=== PATIENT | male | born 1970 | race Two or more races ===

== ENCOUNTER 2016-12-17 16:49 | Inpatient (IN) | payer SELFPAY ==
[~2016-12-17] VITALS: Ht 167.6 cm; Wt 44.7 kg
[2016-12-17] MEDS ORDERED: IV NORMAL SALINE 1000ML BAG 1,000 ML IV ONE (18:00)
[2016-12-17] MEDS ORDERED: MORPHINE SULFATE 4 MG/ML DISP.SYRIN. IV PRN (18:15)
[2016-12-17] MEDS ORDERED: ONDANSETRON PF 4 MG/2 ML VIAL. IV PRN (18:15)
--- NOTE | 2016-12-17 18:18 | PHYS DOC ---
Past Medical History Past Medical History: No Pertinent History, Diabetes-Type I, Hypertension Additional Past Medical Histor: noncompliant with treatment Past Surgical History: No Surgical History Alcohol Use: None Drug Use: None Adult General Chief Complaint Chief Complaint: MULTIPLE COMPLAINTS [facility] HPI Patient is a 46 year old male who presents with [id number] who has multiple complaints including several day history of pain erythema swelling to the left medial thigh denies fevers denies trauma. In addition has had exertional dyspnea and some tightness in his chest over the past 6 months this progressively getting worse. Denies any history of heart murmurs. Denies taking medicine for his known history of diabetes. Review of Systems Review of Systems Constitutional: Denies fever or chills [] Eyes: Denies change in visual acuity, redness, or eye pain [] HENT: Denies nasal congestion or sore throat [] Respiratory: Denies cough or shortness of breath [] Cardiovascular: No additional information not addressed in HPI [] GI: Denies abdominal pain, nausea, vomiting, bloody stools or diarrhea [] : Denies dysuria or hematuria [] Musculoskeletal: Denies back pain or joint pain [] Integument: Denies rash or skin lesions [] Neurologic: Denies headache, focal weakness or sensory changes [] Endocrine: Denies polyuria or polydipsia [] Current Medications Current Medications Current Medications Medications (Trade) Dose Ordered Sig/Davidson Start Time Stop Time Status Last Admin Dose Admin Clindamycin Phosphate 50 ml @ 100 mls/hr 1X ONCE 12/17/16 18:45 12/17/16 19:14 DC 12/17/16 18:48 100 MLS/HR Morphine Sulfate 4 mg PRN Q2HR PRN 12/17/16 18:15 12/18/16 18:14 12/17/16 18:30 4 MG Ondansetron HCl (Zofran) 4 mg PRN Q8HRS PRN 12/17/16 18:15 12/18/16 18:14 12/17/16 18:29 4 MG Sodium Chloride 1,000 ml @ 1,000 mls/hr 1X ONCE 12/17/16 18:00 12/17/16 18:59 DC 12/17/16 18:28 1,000 MLS/HR Allergies Allergies Allergies Coded Allergies Type Severity Reaction Last Updated Verified No Known Drug Allergies 12/17/16 No Physical Exam Physical Exam Constitutional: Well developed, well nourished, no acute distress, non-toxic appearance. [] HENT: Normocephalic, atraumatic, bilateral external ears normal, oropharynx moist, no oral exudates, nose normal. [] Eyes: PERRLA, EOMI, conjunctiva normal, no discharge. [] Neck: Normal range of motion, no tenderness, supple, no stridor. [] Cardiovascular:Heart rate tachycardic, regular rhythm, systolic ejection murmur[ ] Lungs & Thorax: Bilateral breath sounds clear to auscultation [] Abdomen: Bowel sounds normal, soft, no tenderness, no masses, no pulsatile masses. [] Skin: Warm, dry, no erythema, no rash. [] Back: No tenderness, no CVA tenderness. [] Extremities: No tenderness, no cyanosis, no clubbing, ROM intact, no edema. Left medial thigh area of erythema tenderness and induration and as well as inguinal lymph nodes[] Neurologic: Alert and oriented X 3, normal motor function, normal sensory function, no focal deficits noted. [] Psychologic: Affect normal, judgement normal, mood normal. [] Current Patient Data Vital Signs Vital Signs Date Time Temp Pulse Resp B/P (MAP) Pulse Ox O2 Delivery O2 Flow Rate FiO2 12/17/16 20:18 94 18 149/90 (109) 99 Room Air 12/17/16 17:37 98.3 98.3 Lab Values Laboratory Tests Test 12/17/16 17:37 12/17/16 18:15 12/17/16 18:20 Glucose (Fingerstick) 442 mg/dL (70-99) H White Blood Count 10.6 x10^3/uL (4.0-11.0) Red Blood Count 4.65 x10^6/uL (4.30-5.70) Hemoglobin 13.2 g/dL (13.0-17.5) Hematocrit 38.5 % (39.0-53.0) L Mean Corpuscular Volume 83 fL (79-100) Mean Corpuscular Hemoglobin 28 pg (25-35) Mean Corpuscular Hemoglobin Concent 34 g/dL (31-37) Red Cell Distribution Width 13.0 % (11.5-14.5) Platelet Count 601 x10^3/uL (140-400) H Neutrophils (%) (Auto) 71 % (31-73) Lymphocytes (%) (Auto) 20 % (24-48) L Monocytes (%) (Auto) 7 % (0-9) Eosinophils (%) (Auto) 1 % (0-3) Basophils (%) (Auto) 1 % (0-3) Neutrophils # (Auto) 7.5 x10^3uL (1.8-7.7) Lymphocytes # (Auto) 2.1 x10^3/uL (1.0-4.8) Monocytes # (Auto) 0.7 x10^3/uL (0.0-1.1) Eosinophils # (Auto) 0.1 x10^3/uL (0.0-0.7) Basophils # (Auto) 0.1 x10^3/uL (0.0-0.2) Sodium Level 134 mmol/L (136-145) L Potassium Level 3.6 mmol/L (3.5-5.1) Chloride Level 94 mmol/L (98-107) L Carbon Dioxide Level 31 mmol/L (21-32) Anion Gap 9 (6-14) Blood Urea Nitrogen 11 mg/dL (8-26) Creatinine 0.8 mg/dL (0.7-1.3) Estimated GFR (Cockcroft-Gault) 103.6 BUN/Creatinine Ratio 14 (6-20) Glucose Level 411 mg/dL (70-99) H Lactic Acid Level 1.1 mmol/L (0.4-2.0) Calcium Level 9.4 mg/dL (8.5-10.1) Total Bilirubin 0.3 mg/dL (0.2-1.0) Aspartate Amino Transferase (AST) 10 U/L (15-37) L Alanine Aminotransferase (ALT) 15 U/L (16-63) L Alkaline Phosphatase 160 U/L (46-116) H Troponin I Quantitative < 0.017 ng/mL (0.000-0.055) Total Protein 8.4 g/dL (6.4-8.2) H Albumin 2.9 g/dL (3.4-5.0) L Albumin/Globulin Ratio 0.5 (1.0-1.7) L Urine Collection Type Unknown Urine Color Yellow Urine Clarity Clear Urine pH 6.5 Urine Specific [place] >=1.030 Urine Protein Negative mg/dL (NEG-TRACE) Urine Glucose (UA) >=1000 mg/dL (NEG) Urine Ketones (Stick) Trace mg/dL (NEG) Urine Blood Moderate (NEG) Urine Nitrite Negative (NEG) Urine Bilirubin Negative (NEG) Urine Urobilinogen Dipstick 0.2 mg/dL (0.2 mg/dL) Urine Leukocyte Esterase Negative (NEG) Urine RBC 20-40 /HPF (0-2) Urine WBC 0 /HPF (0-4) Urine Bacteria 0 /HPF (0-FEW) Laboratory Tests 12/17/16 18:15 Laboratory Tests 12/17/16 18:15 EKG EKG Sinus tachycardia rate of 106 QTC 453 LVH with strain no ST segment elevation no STEMI. My interpretation.[] Radiology/Procedures Radiology/Procedures Chest x-ray: Negative per my review review Ultrasound left leg to eval for DVT and/or abscess: No DVT no abscess per radiology report[] Course & Med Decision Making Course & Med Decision Making Pertinent Labs and Imaging studies reviewed. (See chart for details) Due to the patient's tachycardia allowed heart murmur combined with what appears to be an infectious process involving the left leg plus uncontrolled diabetes with admitting him to the hospitalist and talked to Dr. Gordon who agrees to admit the patient. Patient was given IV clindamycin. [] Dragon Disclaimer Dragon Disclaimer This electronic medical record was generated, in whole or in part, using a voice recognition dictation system. Departure Departure Impression: Primary Impression: Cellulitis of left thigh Additional Impressions: Uncontrolled diabetes mellitus Uncontrolled hypertension Heart murmur, systolic Heart murmur Disposition: ADMITTED INPATIENT Admitting Physician: Linnea Gordon Condition: STABLE Referrals: NO PCP (PCP) Problem Qualifiers SANDRA GARCIA MD Dec 17, 2016 18:18
[2016-12-17 18:26] LABS: BASO # 0.1 x10^3/uL (0.0-0.2); BASO % 1 % (0-3); EOS % 1 % (0-3); HEMATOCRIT 38.5 % (39.0-53.0); HEMOGLOBIN 13.2 g/dL (13.0-17.5); LYMPH # 2.1 x10^3/uL (1.0-4.8); LYMPH % 20 % (24-48); MEAN CORPUSCULAR HEMOGLOBIN 28 pg (25-35); MEAN CORPUSCULAR HGB CONC 34 g/dL (31-37); MEAN CORPUSCULAR VOLUME 83 fL (79-100); MONO % 7 % (0-9); NEUT % 71 % (31-73); PLATELET COUNT 601 x10^3/uL (140-400); RED BLOOD COUNT 4.65 x10^6/uL (4.30-5.70); WHITE BLOOD COUNT 10.6 x10^3/uL (4.0-11.0)
[2016-12-17 18:39] LABS: BILIRUBIN,URINE NEGATIVE (NEG); GLUCOSE,URINE >=1000 mg/dL (NEG); NITRITE,URINE NEGATIVE (NEG); PH,URINE 6.5; PROTEIN,URINE NEGATIVE (NEG-TRACE); UROBILINOGEN,URINE 0.2 mg/dL (0.2 mg/dL)
[2016-12-17 18:44] LABS: CALCIUM 9.4 mg/dL (8.5-10.1); CREATININE 0.8 mg/dL (0.7-1.3); GFR 103.6; POTASSIUM 3.6 mmol/L (3.5-5.1)
[2016-12-17 18:45] LABS: BACTERIA,URINE 0 /HPF (0-FEW); RBC,URINE 20-40 /HPF (0-2); WBC,URINE 0 /HPF (0-4)
[2016-12-17] MEDS ORDERED: CLINDAMYCIN 900MG PREMIX 50 ML IV ONE (18:45)
[2016-12-17 18:57] LABS: ALBUMIN 2.9 g/dL (3.4-5.0); ALBUMIN/GLOBULIN RATIO 0.5 (1.0-1.7); TOTAL BILIRUBIN 0.3 mg/dL (0.2-1.0); TOTAL PROTEIN 8.4 g/dL (6.4-8.2)
--- NOTE | 2016-12-17 19:40 | RAD ---
Left lower extremity venous doppler ultrasound History: Left thigh redness and pain Comparison: None Findings: Multiple grayscale, color, and duplex spectral analysis sonographic images were acquired of the left lower extremity veins to evaluate for the presence of DVT. There is normal phasicity. Normal compression, color-flow, and augmentation is demonstrated from the left common femoral to the popliteal veins. There is normal color flow of the proximal greater saphenous and profunda femoris veins. There is normal color flow of segments of the calf veins. There are nonspecific left groin lymph nodes. Due to the vasculature labeled as the medial left thigh region, there is area of hypoechogenicity with diffuse internal echoes, associated hyperemia. This measures up to 7.4 x 5.9 x 2.5 cm. Impression: 1. There is no evidence of deep venous thrombosis from the left common femoral to popliteal veins. 2. Labeled as the left thigh region deep to the vasculature, there is area of abnormal hypoechogenicity with diffuse internal echoes and hyperemia, may be due to phlegmon. Electronically signed by: Amol Gonzales MD (12/17/2016 7:37 PM) [employer]
[2016-12-17 21:20] VITALS: BP 166/107
--- NOTE | 2016-12-17 22:17 | HP ---
ADMIT DATE: 12/17/2016 CHIEF COMPLAINT: Left leg pain, left swelling in the left medial thigh. HISTORY OF PRESENT ILLNESS: The patient is a pleasant 46-year-old man who presented with left thigh swelling, some pain. Appears he has cellulitis there. While in the ER, he was also noted to have accelerated hypertension. He also has left ventricular hypertrophy on EKG. He is short of breath. He also got systolic ejection murmur. This is undiagnosed. I have discussed the case with the ER physician. We are going to admit the patient, give him IV antibiotics and consult Cardiology. PAST MEDICAL HISTORY: Benign. Diabetes and hypertension. ALLERGIES: None. FAMILY HISTORY: Hypertension. SOCIAL HISTORY: Does not drink, smoke or take drugs. He is . He has got kids. MEDICATIONS: Reviewed, please refer to the MRAD. REVIEW OF SYSTEMS: GENERAL: No history of weight change, weakness or fevers. SKIN: No bruising, hair changes or rashes. EYES: No blurred, double or loss of vision. NOSE AND THROAT: No history of nosebleeds, hoarseness or sore throat. HEART: No history of palpitations, chest pain or shortness of breath on exertion. LUNGS: Denies cough, hemoptysis, wheezing or shortness of breath. GASTROINTESTINAL: Denies changes in appetite, nausea, vomiting, diarrhea or constipation. GENITOURINARY: No history of frequency, urgency, hesitancy or nocturia. NEUROLOGIC: Denies history of numbness, tingling, tremor or weakness. PSYCHIATRIC: No history of panic, anxiety or depression. ENDOCRINE: No history of heat or cold intolerance, polyuria or polydipsia. EXTREMITIES: He complains of left leg pain in the left thigh. PHYSICAL EXAMINATION: VITAL SIGNS: Temperature afebrile, pulse 74, respirations 20, blood pressure 180/97. We have got it a little bit down to 149/90. GENERAL: He is alert, cooperative. His is present. CARDIAC: S1 and S2 with a soft S3 and 4/6 systolic ejection murmur. LUNGS: Clear. ABDOMEN: Soft. EXTREMITIES: The left medial thigh has some swelling and erythema, consistent with cellulitis. ENDOCRINE: No thyromegaly. LYMPHATICS: No cervical nodes. HEMATOPOIETIC: No bruising. LABORATORY DATA: White count 10, hemoglobin 13, platelets 601. Electrolytes: Sodium 134, potassium 3.6, chloride 94, bicarbonate 31, BUN 11, creatinine 0.8, glucose 411. ASSESSMENT AND PLAN: Cellulitis, hyperglycemia, accelerated hypertension, hyponatremia, left ventricular hypertrophy. The patient is being admitted. We will do a full cardiac workup. Give him IV antibiotics. Consult Cardiology. Azul puckett. Continue home medicines. GREGORIA JORDAN DO DR: SILVIA/leonid JOB#: [id number] / [id number]
[2016-12-17] MEDS ORDERED: ACETAMINOPHEN 325 MG TABLET. PO PRN (23:30)
[2016-12-17] MEDS ORDERED: DEXTROSE 50% 25 GM / 50ML DISP.SYRIN. IV PRN (23:30)
[2016-12-17 23:38] VITALS: BP 185/116
[2016-12-18] MEDS: IV NORMAL SALINE 1000ML BAG 1,000 ML IV SCH ×2 (00:18→12:25)
[2016-12-18] MEDS: INSULIN ASPART 300 UNITS/3 ML INSULN.PEN SQ SCH ×7 (00:26→20:57)
[2016-12-18] MEDS ORDERED: [UNRECOGNIZED DRUG - REMARK] (01:07)
[2016-12-18 03:31] VITALS: BP 130/94
[2016-12-18 07:59] VITALS: BP 132/83
[2016-12-18] MEDS ORDERED: INSULIN ASPART 300 UNITS/3 ML INSULN.PEN SQ SCH (08:00)
--- NOTE | 2016-12-18 08:00 | RAD ---
Portable chest, 12/17/2016: History: Chest pain, abnormal EKG The heart size and pulmonary vascularity are normal. No pulmonary infiltrates are seen. There is no evidence of pleural fluid. IMPRESSION: No acute cardiopulmonary abnormality is detected
[2016-12-18] MEDS ORDERED: PNEUMOC CONJ VACC 23-VALENT 0.5 ML VIAL. VAX IM ONE (09:00)
[2016-12-18] MEDS ORDERED: INSULIN DETEMIR 300 UNITS/3 ML INSULN.PEN. SQ SCH (10:30)
--- NOTE | 2016-12-18 10:35 | PDOC ---
PROGRESS NOTES Chief Complaint Chief Complaint Cellulitis, Diabetes 2, w./ hyperglycemia, accelerated hypertension, new murmur hyponatremia left ventricular hypertrophy. murmur, echo pending moderate malnutrition, POA History of Present Illness History of Present Illness BP better on cardizem, will start low dose lisinopril for renal protection in DM add sched aspart and levemir, now cont clinda for leg cellulitis, is much improved after IV dose last night in good spiritis today he has not been compliant with Dm treatment for months, with marked weight loss during that time, malnutrition due to hyperglycemia and poor Dm care discussed Vitals Vitals Vital Signs Date Time Temp Pulse Resp B/P (MAP) Pulse Ox O2 Delivery O2 Flow Rate FiO2 12/18/16 09:25 107 132/83 12/18/16 08:00 Room Air 12/18/16 07:59 98.4 16 98 98.4 Physical Exam General: Alert, Oriented X3, Cooperative, No acute distress Heart: Regular rate, Other (3/6 April, good pulse,s ) Lungs: Clear Abdomen: Normal bowel sounds, Soft Extremities: No clubbing Skin: No rashes, No breakdown Labs LABS Laboratory Tests Test 12/17/16 17:37 12/17/16 18:15 12/17/16 18:20 12/17/16 21:35 Glucose (Fingerstick) 442 mg/dL (70-99) 316 mg/dL (70-99) White Blood Count 10.6 x10^3/uL (4.0-11.0) Red Blood Count 4.65 x10^6/uL (4.30-5.70) Hemoglobin 13.2 g/dL (13.0-17.5) Hematocrit 38.5 % (39.0-53.0) Mean Corpuscular Volume 83 fL (79-100) Mean Corpuscular Hemoglobin 28 pg (25-35) Mean Corpuscular Hemoglobin Concent 34 g/dL (31-37) Red Cell Distribution Width 13.0 % (11.5-14.5) Platelet Count 601 x10^3/uL (140-400) Neutrophils (%) (Auto) 71 % (31-73) Lymphocytes (%) (Auto) 20 % (24-48) Monocytes (%) (Auto) 7 % (0-9) Eosinophils (%) (Auto) 1 % (0-3) Basophils (%) (Auto) 1 % (0-3) Neutrophils # (Auto) 7.5 x10^3uL (1.8-7.7) Lymphocytes # (Auto) 2.1 x10^3/uL (1.0-4.8) Monocytes # (Auto) 0.7 x10^3/uL (0.0-1.1) Eosinophils # (Auto) 0.1 x10^3/uL (0.0-0.7) Basophils # (Auto) 0.1 x10^3/uL (0.0-0.2) Sodium Level 134 mmol/L (136-145) Potassium Level 3.6 mmol/L (3.5-5.1) Chloride Level 94 mmol/L (98-107) Carbon Dioxide Level 31 mmol/L (21-32) Anion Gap 9 (6-14) Blood Urea Nitrogen 11 mg/dL (8-26) Creatinine 0.8 mg/dL (0.7-1.3) Estimated GFR (Cockcroft-Gault) 103.6 BUN/Creatinine Ratio 14 (6-20) Glucose Level 411 mg/dL (70-99) Lactic Acid Level 1.1 mmol/L (0.4-2.0) Calcium Level 9.4 mg/dL (8.5-10.1) Total Bilirubin 0.3 mg/dL (0.2-1.0) Aspartate Amino Transf (AST/SGOT) 10 U/L (15-37) Alanine Aminotransferase (ALT/SGPT) 15 U/L (16-63) Alkaline Phosphatase 160 U/L (46-116) Troponin I Quantitative < 0.017 ng/mL (0.000-0.055) Total Protein 8.4 g/dL (6.4-8.2) Albumin 2.9 g/dL (3.4-5.0) Albumin/Globulin Ratio 0.5 (1.0-1.7) Urine Collection Type Unknown Urine Color Yellow Urine Clarity Clear Urine pH 6.5 Urine Specific [place] >=1.030 Urine Protein Negative mg/dL (NEG-TRACE) Urine Glucose (UA) >=1000 mg/dL (NEG) Urine Ketones (Stick) Trace mg/dL (NEG) Urine Blood Moderate (NEG) Urine Nitrite Negative (NEG) Urine Bilirubin Negative (NEG) Urine Urobilinogen Dipstick 0.2 mg/dL (0.2 mg/dL) Urine Leukocyte Esterase Negative (NEG) Urine RBC 20-40 /HPF (0-2) Urine WBC 0 /HPF (0-4) Urine Bacteria 0 /HPF (0-FEW) Test 12/18/16 07:52 Glucose (Fingerstick) 284 mg/dL (70-99) Review of Systems Review of Systems no n.v.d feels well good PO Assessment and Plan Assessmemt and Plan Problems Medical Problems: (1) Cellulitis of left thigh Status: Acute (2) Heart murmur Status: Acute (3) Heart murmur, systolic Status: Acute (4) Uncontrolled diabetes mellitus Status: Acute (5) Uncontrolled hypertension Status: Acute Problems: Comment Review of Relevant I have reviewed the following items aditya (where applicable) has been applied. Labs Laboratory Tests Test 12/17/16 17:37 12/17/16 18:15 12/17/16 18:20 12/17/16 21:35 Glucose (Fingerstick) 442 mg/dL (70-99) 316 mg/dL (70-99) White Blood Count 10.6 x10^3/uL (4.0-11.0) Red Blood Count 4.65 x10^6/uL (4.30-5.70) Hemoglobin 13.2 g/dL (13.0-17.5) Hematocrit 38.5 % (39.0-53.0) Mean Corpuscular Volume 83 fL (79-100) Mean Corpuscular Hemoglobin 28 pg (25-35) Mean Corpuscular Hemoglobin Concent 34 g/dL (31-37) Red Cell Distribution Width 13.0 % (11.5-14.5) Platelet Count 601 x10^3/uL (140-400) Neutrophils (%) (Auto) 71 % (31-73) Lymphocytes (%) (Auto) 20 % (24-48) Monocytes (%) (Auto) 7 % (0-9) Eosinophils (%) (Auto) 1 % (0-3) Basophils (%) (Auto) 1 % (0-3) Neutrophils # (Auto) 7.5 x10^3uL (1.8-7.7) Lymphocytes # (Auto) 2.1 x10^3/uL (1.0-4.8) Monocytes # (Auto) 0.7 x10^3/uL (0.0-1.1) Eosinophils # (Auto) 0.1 x10^3/uL (0.0-0.7) Basophils # (Auto) 0.1 x10^3/uL (0.0-0.2) Sodium Level 134 mmol/L (136-145) Potassium Level 3.6 mmol/L (3.5-5.1) Chloride Level 94 mmol/L (98-107) Carbon Dioxide Level 31 mmol/L (21-32) Anion Gap 9 (6-14) Blood Urea Nitrogen 11 mg/dL (8-26) Creatinine 0.8 mg/dL (0.7-1.3) Estimated GFR (Cockcroft-Gault) 103.6 BUN/Creatinine Ratio 14 (6-20) Glucose Level 411 mg/dL (70-99) Lactic Acid Level 1.1 mmol/L (0.4-2.0) Calcium Level 9.4 mg/dL (8.5-10.1) Total Bilirubin 0.3 mg/dL (0.2-1.0) Aspartate Amino Transf (AST/SGOT) 10 U/L (15-37) Alanine Aminotransferase (ALT/SGPT) 15 U/L (16-63) Alkaline Phosphatase 160 U/L (46-116) Troponin I Quantitative < 0.017 ng/mL (0.000-0.055) Total Protein 8.4 g/dL (6.4-8.2) Albumin 2.9 g/dL (3.4-5.0) Albumin/Globulin Ratio 0.5 (1.0-1.7) Urine Collection Type Unknown Urine Color Yellow Urine Clarity Clear Urine pH 6.5 Urine Specific [place] >=1.030 Urine Protein Negative mg/dL (NEG-TRACE) Urine Glucose (UA) >=1000 mg/dL (NEG) Urine Ketones (Stick) Trace mg/dL (NEG) Urine Blood Moderate (NEG) Urine Nitrite Negative (NEG) Urine Bilirubin Negative (NEG) Urine Urobilinogen Dipstick 0.2 mg/dL (0.2 mg/dL) Urine Leukocyte Esterase Negative (NEG) Urine RBC 20-40 /HPF (0-2) Urine WBC 0 /HPF (0-4) Urine Bacteria 0 /HPF (0-FEW) Test 12/18/16 07:52 Glucose (Fingerstick) 284 mg/dL (70-99) Laboratory Tests Test 12/17/16 17:37 12/17/16 18:15 12/17/16 18:20 12/17/16 21:35 Glucose (Fingerstick) 442 mg/dL (70-99) 316 mg/dL (70-99) White Blood Count 10.6 x10^3/uL (4.0-11.0) Red Blood Count 4.65 x10^6/uL (4.30-5.70) Hemoglobin 13.2 g/dL (13.0-17.5) Hematocrit 38.5 % (39.0-53.0) Mean Corpuscular Volume 83 fL (79-100) Mean Corpuscular Hemoglobin 28 pg (25-35) Mean Corpuscular Hemoglobin Concent 34 g/dL (31-37) Red Cell Distribution Width 13.0 % (11.5-14.5) Platelet Count 601 x10^3/uL (140-400) Neutrophils (%) (Auto) 71 % (31-73) Lymphocytes (%) (Auto) 20 % (24-48) Monocytes (%) (Auto) 7 % (0-9) Eosinophils (%) (Auto) 1 % (0-3) Basophils (%) (Auto) 1 % (0-3) Neutrophils # (Auto) 7.5 x10^3uL (1.8-7.7) Lymphocytes # (Auto) 2.1 x10^3/uL (1.0-4.8) Monocytes # (Auto) 0.7 x10^3/uL (0.0-1.1) Eosinophils # (Auto) 0.1 x10^3/uL (0.0-0.7) Basophils # (Auto) 0.1 x10^3/uL (0.0-0.2) Sodium Level 134 mmol/L (136-145) Potassium Level 3.6 mmol/L (3.5-5.1) Chloride Level 94 mmol/L (98-107) Carbon Dioxide Level 31 mmol/L (21-32) Anion Gap 9 (6-14) Blood Urea Nitrogen 11 mg/dL (8-26) Creatinine 0.8 mg/dL (0.7-1.3) Estimated GFR (Cockcroft-Gault) 103.6 BUN/Creatinine Ratio 14 (6-20) Glucose Level 411 mg/dL (70-99) Lactic Acid Level 1.1 mmol/L (0.4-2.0) Calcium Level 9.4 mg/dL (8.5-10.1) Total Bilirubin 0.3 mg/dL (0.2-1.0) Aspartate Amino Transf (AST/SGOT) 10 U/L (15-37) Alanine Aminotransferase (ALT/SGPT) 15 U/L (16-63) Alkaline Phosphatase 160 U/L (46-116) Troponin I Quantitative < 0.017 ng/mL (0.000-0.055) Total Protein 8.4 g/dL (6.4-8.2) Albumin 2.9 g/dL (3.4-5.0) Albumin/Globulin Ratio 0.5 (1.0-1.7) Urine Collection Type Unknown Urine Color Yellow Urine Clarity Clear Urine pH 6.5 Urine Specific [place] >=1.030 Urine Protein Negative mg/dL (NEG-TRACE) Urine Glucose (UA) >=1000 mg/dL (NEG) Urine Ketones (Stick) Trace mg/dL (NEG) Urine Blood Moderate (NEG) Urine Nitrite Negative (NEG) Urine Bilirubin Negative (NEG) Urine Urobilinogen Dipstick 0.2 mg/dL (0.2 mg/dL) Urine Leukocyte Esterase Negative (NEG) Urine RBC 20-40 /HPF (0-2) Urine WBC 0 /HPF (0-4) Urine Bacteria 0 /HPF (0-FEW) Test 12/18/16 07:52 Glucose (Fingerstick) 284 mg/dL (70-99) Medications Current Medications Sodium Chloride 1,000 ml @ 1,000 mls/hr 1X ONCE IV Last administered on 18:28; Start 12/17/16 at 18:00; Stop 12/17/16 at 18:59; Status DC Ondansetron HCl (Zofran) 4 mg PRN Q8HRS PRN IV NAUSEA/VOMITING Last administered on 12/17/16 18:29; Start 12/17/16 at 18:15; Stop 12/18/16 at 18:14 Morphine Sulfate 4 mg PRN Q2HR PRN IV PAIN Last administered on 12/17/16 18:30 ; Start 12/17/16 at 18:15; Stop 12/18/16 at 18:14 Clindamycin Phosphate 50 ml @ 100 mls/hr 1X ONCE IV Last administered on 12/17 18:48; Start 12/17/16 at 18:45; Stop 12/17/16 at 19:14; Status DC Acetaminophen (Tylenol) 650 mg PRN Q6HRS PRN PO MILD PAIN / TEMP Last administered on 12/18/16 00:17; Start 12/17/16 at 23:30 Insulin Aspart (NovoLOG) 0-5 UNITS TIDACHC SQ Last administered on 12/18/16 08 :47; Start 12/17/16 at 23:30 Insulin Aspart (NovoLOG) 0-7 UNITS TIDWMEALS SQ ; Start 12/18/16 at 08:00; Status UNV Dextrose (Dextrose 50%-Water Syringe) 12.5 gm PRN Q15MIN PRN IV SEE COMMENTS; Start 12/17/16 at 23:30 Sodium Chloride 1,000 ml @ 75 mls/hr [id number] IV Last administered on 00:18; Start 12/17/16 at 23:30 Diltiazem HCl (Cardizem 24hr Cd) 120 mg DAILY PO Last administered on 09:25; Start 12/18/16 at 01:00 Pneumococcal Polyvalent Vaccine (Pneumovax 23) 0.5 ml ONCE ONCE VAX IM ; Start 12/18/16 at 09:00; Stop 12/18/16 at 09:01; Status DC Active Scripts Active Reported [pill for diabetes ?] Vitals/I & O Vital Sign - Last 24 Hours 12/17/16 12/17/16 12/17/16 12/17/16 17:37 17:48 18:18 18:30 Temp 98.3 98.3 Pulse 106 108 106 Resp 20 15 19 20 B/P (MAP) 180/97 (124) 184/90 (121) 174/96 (122) Pulse Ox 97 99 99 98 O2 Delivery Room Air Room Air Room Air Room Air 12/17/16 12/17/16 12/17/16 12/17/16 18:48 19:00 19:18 19:48 Pulse 100 100 98 Resp 18 18 B/P (MAP) 159/93 (115) 159/90 (113) 148/89 (108) Pulse Ox 98 95 98 99 O2 Delivery Room Air Room Air Room Air Room Air 12/17/16 12/17/16 12/17/16 12/17/16 20:18 20:48 21:05 21:20 Temp 98.7 98.7 Pulse 94 94 94 100 Resp 18 B/P (MAP) 149/90 (109) 140/84 (102) 149/90 (109) 166/107 (126) Pulse Ox 99 96 94 96 O2 Delivery Room Air Room Air Room Air Room Air 12/17/16 12/17/16 12/18/16 12/18/16 22:00 23:38 01:00 03:31 Temp 99.1 98.3 99.1 98.3 Pulse 110 110 95 Resp 18 18 B/P (MAP) 185/116 (139) 185/116 130/94 (106) Pulse Ox 97 96 O2 Delivery Room Air Room Air Room Air 12/18/16 12/18/16 12/18/16 12/18/16 07:59 08:00 08:00 09:25 Temp 98.4 98.4 Pulse 107 107 Resp 16 B/P (MAP) 132/83 (99) 132/83 Pulse Ox 98 O2 Delivery Room Air Room Air Room Air Intake and Output 12/18/16 12/18/16 12/19/16 15:00 23:00 07:00 Intake Total 300 ml Balance 300 ml TERRENCE GALLAGHER MD Dec 18, 2016 10:34
--- NOTE | 2016-12-18 10:42 | PDOC2 ---
CARDIAC CONSULT DATE OF CONSULT Date of Consult DATE: 12/18/16 TIME: 10:32 REASON FOR CONSULT Reason for Consult: loud new murmur, tachycardia, abn EKG REFERRING PHYSICIAN Referring Physician: Willie SOURCE Source: Chart review, Patient HISTORY OF PRESENT ILLNESS HISTORY OF PRESENT ILLNESS This is a pleasant 46 yo male from [facility]. He speaks mainly Pashto with limited Kyrgyz. Pt reports that he was at [facility] ER few days prior to coming over here. He was noted with left thigh pain and redness and was dismissed without any antibiotics. Upon admission he was noted with the same symptoms with pain to his left thigh, redness and swelling and much better after overnight antibiotics. Upon further examination, pt was noted with loud murmur. Pt does not known about this and denies any hx of heart disease. Denies any palpitations or chest pain. He is positive though for dizziness, SOA with exertion but never has he passed out. Denies SOa at rest, orthopnea or PND. He does not recall any childhood heart disease but significant family hx og premature heart disease. He does have known DM in which he used to take metformin and has not taken any regimen since 6 months ago since he ran out. He does not take any routine medications and no use of tobacco or recreational drugs. PAST MEDICAL HISTORY Cardiovascular: HTN Pulmonary: No pertinent hx CENTRAL NERVOUS SYSTEM: Other (No pertinent history) GI: No pertinent hx Heme/Onc: No pertinent hx Hepatobiliary: No pertinent hx Psych: No pertinent hx Musculoskeletal: Other (no pertinent history) Rheumatologic: No pertinent hx Infectious disease: No pertinent hx ENT: No pertinent hx Renal/: No pertinent hx Endocrine: Diabetes (2) Dermatology: No pertinent hx FAMILY HISTORY Family History sister with MIin her 40s and first cousin [place] in his 20s SOCIAL HISTORY Smoke: No ALCOHOL: none Drugs: None Lives: with Family CURRENT MEDICATIONS CURRENT MEDICATIONS Current Medications Medications (Trade) Dose Ordered Sig/Davidson Route PRN Reason Start Time Stop Time Status Last Admin Dose Admin Sodium Chloride 1,000 ml @ 1,000 mls/hr 1X ONCE IV 12/17/16 18:00 12/17/16 18:59 DC 12/17/16 18:28 Ondansetron HCl (Zofran) 4 mg PRN Q8HRS PRN IV NAUSEA/VOMITING 12/17/16 18:15 12/18/16 18:14 12/17/16 18:29 Morphine Sulfate 4 mg PRN Q2HR PRN IV PAIN 12/17/16 18:15 12/18/16 18:14 12/17/16 18:30 Clindamycin Phosphate 50 ml @ 100 mls/hr 1X ONCE IV 12/17/16 18:45 12/17/16 19:14 DC 12/17/16 18:48 Acetaminophen (Tylenol) 650 mg PRN Q6HRS PRN PO MILD PAIN / TEMP 12/17/16 23:30 12/18/16 00:17 Insulin Aspart (NovoLOG) 0-5 UNITS TIDACHC SQ 12/17/16 23:30 12/18/16 08:47 Sodium Chloride 1,000 ml @ 75 mls/hr [id number] IV 12/17/16 23:30 12/18/16 00:18 Diltiazem HCl (Cardizem 24hr Cd) 120 mg DAILY PO 12/18/16 01:00 12/18/16 09:25 ALLERGIES ALLERGIES: Coded Allergies: No Known Drug Allergies (Unverified , 12/17/16) ROS Review of System 14 point ROS evaluated with pertinent positives noted per HPI PHYSICAL EXAM General: Alert, Oriented X3, Cooperative, No acute distress HEENT: Atraumatic, Mucous membr. moist/pink Lungs: Clear to auscultation, Normal air movement Heart: Regular rate (SR), Normal S1, Normal S2, Other (5-6/6 systolic murmur to apex loudest with valsalva maneuver) Abdomen: Soft, No tenderness Extremities: No cyanosis, No edema Skin: No breakdown, No significant lesion Neuro: Normal speech, Sensation intact Psych/Mental Status: Mental status NL, Mood NL MUSCULOSKELETAL: Full range of motion without pain VITALS VITALS Vital Signs Date Time Temp Pulse Resp B/P (MAP) Pulse Ox O2 Delivery O2 Flow Rate FiO2 12/18/16 09:25 107 132/83 12/18/16 08:00 Room Air 12/18/16 07:59 98.4 16 98 98.4 LABS Lab: Laboratory Tests Test 12/17/16 17:37 12/17/16 18:15 12/17/16 18:20 12/17/16 21:35 Glucose (Fingerstick) 442 mg/dL (70-99) 316 mg/dL (70-99) White Blood Count 10.6 x10^3/uL (4.0-11.0) Red Blood Count 4.65 x10^6/uL (4.30-5.70) Hemoglobin 13.2 g/dL (13.0-17.5) Hematocrit 38.5 % (39.0-53.0) Mean Corpuscular Volume 83 fL (79-100) Mean Corpuscular Hemoglobin 28 pg (25-35) Mean Corpuscular Hemoglobin Concent 34 g/dL (31-37) Red Cell Distribution Width 13.0 % (11.5-14.5) Platelet Count 601 x10^3/uL (140-400) Neutrophils (%) (Auto) 71 % (31-73) Lymphocytes (%) (Auto) 20 % (24-48) Monocytes (%) (Auto) 7 % (0-9) Eosinophils (%) (Auto) 1 % (0-3) Basophils (%) (Auto) 1 % (0-3) Neutrophils # (Auto) 7.5 x10^3uL (1.8-7.7) Lymphocytes # (Auto) 2.1 x10^3/uL (1.0-4.8) Monocytes # (Auto) 0.7 x10^3/uL (0.0-1.1) Eosinophils # (Auto) 0.1 x10^3/uL (0.0-0.7) Basophils # (Auto) 0.1 x10^3/uL (0.0-0.2) Sodium Level 134 mmol/L (136-145) Potassium Level 3.6 mmol/L (3.5-5.1) Chloride Level 94 mmol/L (98-107) Carbon Dioxide Level 31 mmol/L (21-32) Anion Gap 9 (6-14) Blood Urea Nitrogen 11 mg/dL (8-26) Creatinine 0.8 mg/dL (0.7-1.3) Estimated GFR (Cockcroft-Gault) 103.6 BUN/Creatinine Ratio 14 (6-20) Glucose Level 411 mg/dL (70-99) Lactic Acid Level 1.1 mmol/L (0.4-2.0) Calcium Level 9.4 mg/dL (8.5-10.1) Total Bilirubin 0.3 mg/dL (0.2-1.0) Aspartate Amino Transf (AST/SGOT) 10 U/L (15-37) Alanine Aminotransferase (ALT/SGPT) 15 U/L (16-63) Alkaline Phosphatase 160 U/L (46-116) Troponin I Quantitative < 0.017 ng/mL (0.000-0.055) Total Protein 8.4 g/dL (6.4-8.2) Albumin 2.9 g/dL (3.4-5.0) Albumin/Globulin Ratio 0.5 (1.0-1.7) Urine Collection Type Unknown Urine Color Yellow Urine Clarity Clear Urine pH 6.5 Urine Specific [place] >=1.030 Urine Protein Negative mg/dL (NEG-TRACE) Urine Glucose (UA) >=1000 mg/dL (NEG) Urine Ketones (Stick) Trace mg/dL (NEG) Urine Blood Moderate (NEG) Urine Nitrite Negative (NEG) Urine Bilirubin Negative (NEG) Urine Urobilinogen Dipstick 0.2 mg/dL (0.2 mg/dL) Urine Leukocyte Esterase Negative (NEG) Urine RBC 20-40 /HPF (0-2) Urine WBC 0 /HPF (0-4) Urine Bacteria 0 /HPF (0-FEW) Test 12/18/16 07:52 Glucose (Fingerstick) 284 mg/dL (70-99) ASSESSMENT/PLAN ASSESSMENT/PLAN 1. Left thigh pain/erythema: possible cellulitis 2. Accelerated HTN 3. Murmur: suspecting HOCM and/o possible with symptom of SOA/dizziness with exertion.and no CP 4. Abnormal EKG: EKG SR with LVH with nonspecific ST-T wave changes with diffuse asymmetrical T wave inversion likely from LV strain. 5. Uncontrolled DM: due to noncompliance. Per PCP 6. Family hx of premature CAD: Sister [place] at 40s and First cousin [place] at his 20s. Recommendations 1. Further recommendation after TTE result 2. TSH, A1C 3. Maintain BP control, cardizem on board. 4. Start on low dose statin, ASA. 5. Await TTE and will consider for MPI given his symptoms to rule out any contributing ischemic issues with significant cardiac risk factors 6. Significant discussion in regards to treatment compliance. Problems: RAGHU RIOJAS [employer]ER Dec 18, 2016 10:42
[2016-12-18 10:53] VITALS: BP 128/83
[2016-12-18] MEDS: CLINDAMYCIN HCL 150 MG CAPSULE. PO SCH ×3 (11:01→20:01)
[2016-12-18 12:03] LABS: CALCIUM 9.2 mg/dL (8.5-10.1); CREATININE 0.5 mg/dL (0.7-1.3); GFR 178.2; POTASSIUM 4.4 mmol/L (3.5-5.1)
[2016-12-18 12:10] LABS: CHOLESTEROL/HDL RATIO 5.2
[2016-12-18] MEDS: ASPIRIN ENTERIC COATED 81 MG TABLET.DR. PO SCH (13:58)
[2016-12-18 14:32] VITALS: BP 128/87
--- NOTE | 2016-12-18 15:23 | CARD ---
APPROVED REPORT EXAM: Two-dimensional and M-mode echocardiogram with Doppler and color Doppler. Other Information Quality : Average Rhythm : Tachycardia INDICATION Murmur 2D DIMENSIONS RVDd2.5 (2.9-3.5cm)Left Atrium(2D)2.2 (1.6-4.0cm) IVSd1.3 (0.7-1.1cm)Aortic Root(2D)2.6 (2.0-3.7cm) LVDd3.5 (3.9-5.9cm)LVOT Diameter2.0 (1.8-2.4cm) PWd1.3 (0.7-1.1cm)LVDs2.4 (2.5-4.0cm) FS (%) 29.8 %SV28.8 ml LVEF(%)58.0 (>50%) Aortic Valve AoV Peak Rodrigo.168.4cm/sAoV VTI24.4cm AO Peak GR.11.3mmHgLVOT VTI 27.17cm AO Mean GR.7mmHg Mitral Valve MV E Qgoytzrl72.5cm/sMV E Peak Gr.3mmHg MV DECEL [id number] A Agwvkhju62.0cm/s MV E Mean Gr.1mmHgMV WTO96qu E/A Ratio1.1MV A Qqdjmoaf330bv MVA (PHT)4.40cm2 TDI Lateral E' P. V9.07cm/sMedial E' P. V5.66cm/s E/Lateral E'7.8E/Medial E'12.5 Tricuspid Valve TR P. Kullgowk095at/sRAP RTPNGRXT2ubCc TR Peak Gr.99jePuCYET69poJy Pulmonary Vein S1 Hufknjhw60.9cm/sS2 Ebfmizfd59.25cm/s D2 Tydjyric86.2cm/s LEFT VENTRICLE The left ventricle is normal size. There is borderline concentric left ventricular hypertrophy. Left ventricle systolic function is normal. The Ejection Fraction is 55-60%. There is normal LV segmental wall motion. The left ventricular diastolic function and filling is normal for age. There is no ventr icular septal defect visualized. RIGHT VENTRICLE The right ventricle is normal size. The right ventricular systolic function is normal. ATRIA The left atrium size is normal. The right atrium size is normal. The interatrial septum is intact wit h no evidence for an atrial septal defect or patent foramen ovale as noted on 2-D or Doppler imaging. AORTIC VALVE The aortic valve is mildly to moderately calcified. The aortic valve is trileaflet. Doppler and Color Flow revealed no significant aortic regurgitation. There is no significant aortic valvular stenosis. MITRAL VALVE The mitral valve is normal in structure and function. There is no mitral valve stenosis. Doppler and Color Flow revealed mild mitral regurgitation. TRICUSPID VALVE The tricuspid valve is normal in structure and function. Doppler and Color Flow revealed trace tricus pid regurgitation. The PA pressure was estimated at 15 mmHg. There is no tricuspid valve stenosis. PULMONIC VALVE The pulmonic valve is not well visualized. Doppler and Color Flow revealed no pulmonic valvular regur gitation. There is no pulmonic valvular stenosis. GREAT VESSELS The aortic root is normal in size. The ascending aorta is normal in size. Normal pulmonary venous oumar w (Doppler). The IVC is normal in size and collapses >50% with inspiration. PERICARDIAL EFFUSION There is no evidence of significant pericardial effusion. Critical Notification Critical Value: No <Conclusion> Left ventricle systolic function is normal. The Ejection Fraction is 55-60%. There is normal LV segmental wall motion. No significant valvular regurgitation or stenosis. Aortic valve sclerosis and calcification slightly more prominent for age but otherwise no gross struc tural heart disease.
[2016-12-18 19:51] VITALS: BP 128/79
[2016-12-18] MEDS ORDERED: ATORVASTATIN CALCIUM 20 MG TABLET PO SCH (21:00)
[2016-12-18 23:26] VITALS: BP 153/98
[2016-12-19] MEDS: IV NORMAL SALINE 1000ML BAG 1,000 ML IV SCH ×2 (02:03→15:30)
[2016-12-19 05:40] LABS: BASO % 0 % (0-3); EOS % 3 % (0-3); HEMATOCRIT 34.8 % (39.0-53.0); HEMOGLOBIN 12.3 g/dL (13.0-17.5); LYMPH # 2.5 x10^3/uL (1.0-4.8); LYMPH % 23 % (24-48); MEAN CORPUSCULAR HEMOGLOBIN 29 pg (25-35); MEAN CORPUSCULAR HGB CONC 35 g/dL (31-37); MEAN CORPUSCULAR VOLUME 81 fL (79-100); MONO % 7 % (0-9); NEUT % 67 % (31-73); PLATELET COUNT 526 x10^3/uL (140-400); RED BLOOD COUNT 4.29 x10^6/uL (4.30-5.70); RED CELL DISTRIBUTION WIDTH 13.3 % (11.5-14.5); WHITE BLOOD COUNT 10.8 x10^3/uL (4.0-11.0)
[2016-12-19 06:10] LABS: ALBUMIN 2.3 g/dL (3.4-5.0); ALBUMIN/GLOBULIN RATIO 0.5 (1.0-1.7); CALCIUM 8.7 mg/dL (8.5-10.1); CREATININE 0.5 mg/dL (0.7-1.3); GFR 178.2; POTASSIUM 3.4 mmol/L (3.5-5.1); TOTAL BILIRUBIN 0.3 mg/dL (0.2-1.0); TOTAL PROTEIN 7.1 g/dL (6.4-8.2)
[2016-12-19 07:00] VITALS: BP 155/94
[2016-12-19] MEDS: INSULIN ASPART 300 UNITS/3 ML INSULN.PEN SQ SCH ×3 (07:30→12:52)
[2016-12-19] MEDS ORDERED: POTASSIUM CHLORIDE 20 MEQ TABLET.ER. PO ONE (09:30)
[2016-12-19] MEDS ORDERED: INSULIN DETEMIR 300 UNITS/3 ML INSULN.PEN. SQ SCH (10:00)
[2016-12-19 10:46] VITALS: BP 158/90
[2016-12-19] MEDS ORDERED: INSULIN ASPART 300 UNITS/3 ML INSULN.PEN SQ SCH (11:30)
--- NOTE | 2016-12-19 11:46 | PDOC ---
CARDIO Progress Notes Date and Time Date of Service 12/19/2016 Time of Evaluation 1120 Subjective Subjective: No Chest Pain, No shortness of breath, No Palpitations, No Dizziness Vitals Vitals Vital Signs Date Time Temp Pulse Resp B/P (MAP) Pulse Ox O2 Delivery O2 Flow Rate FiO2 12/19/16 10:46 98.0 89 18 158/90 (112) 99 Room Air 98.0 Weight Weight [ ] Laboratory Labs Laboratory Tests Test 12/18/16 15:47 12/18/16 20:49 12/19/16 04:05 12/19/16 07:27 Glucose (Fingerstick) 270 mg/dL (70-99) 304 mg/dL (70-99) 282 mg/dL (70-99) White Blood Count 10.8 x10^3/uL (4.0-11.0) Red Blood Count 4.29 x10^6/uL (4.30-5.70) Hemoglobin 12.3 g/dL (13.0-17.5) Hematocrit 34.8 % (39.0-53.0) Mean Corpuscular Volume 81 fL (79-100) Mean Corpuscular Hemoglobin 29 pg (25-35) Mean Corpuscular Hemoglobin Concent 35 g/dL (31-37) Red Cell Distribution Width 13.3 % (11.5-14.5) Platelet Count 526 x10^3/uL (140-400) Neutrophils (%) (Auto) 67 % (31-73) Lymphocytes (%) (Auto) 23 % (24-48) Monocytes (%) (Auto) 7 % (0-9) Eosinophils (%) (Auto) 3 % (0-3) Basophils (%) (Auto) 0 % (0-3) Neutrophils # (Auto) 7.2 x10^3uL (1.8-7.7) Lymphocytes # (Auto) 2.5 x10^3/uL (1.0-4.8) Monocytes # (Auto) 0.8 x10^3/uL (0.0-1.1) Eosinophils # (Auto) 0.4 x10^3/uL (0.0-0.7) Basophils # (Auto) 0.0 x10^3/uL (0.0-0.2) Sodium Level 134 mmol/L (136-145) Potassium Level 3.4 mmol/L (3.5-5.1) Chloride Level 98 mmol/L (98-107) Carbon Dioxide Level 29 mmol/L (21-32) Anion Gap 7 (6-14) Blood Urea Nitrogen 11 mg/dL (8-26) Creatinine 0.5 mg/dL (0.7-1.3) Estimated GFR (Cockcroft-Gault) 178.2 BUN/Creatinine Ratio 22 (6-20) Glucose Level 329 mg/dL (70-99) Calcium Level 8.7 mg/dL (8.5-10.1) Total Bilirubin 0.3 mg/dL (0.2-1.0) Aspartate Amino Transf (AST/SGOT) 10 U/L (15-37) Alanine Aminotransferase (ALT/SGPT) 11 U/L (16-63) Alkaline Phosphatase 124 U/L (46-116) Total Protein 7.1 g/dL (6.4-8.2) Albumin 2.3 g/dL (3.4-5.0) Albumin/Globulin Ratio 0.5 (1.0-1.7) Test 12/19/16 10:39 Glucose (Fingerstick) 286 mg/dL (70-99) Microbiology Micro Microbiology 12/17/16 Blood Culture - Preliminary, Resulted NO GROWTH AFTER 1 DAY Physical Exam HEENT: Neck Supple W Full Motion Chest: Symmetric LUNGS: Clear to Auscultation Heart: S1S2, RRR (SR), murmurs (5/6 systolic murmur diffuse loudest to apex) Abdomen: Soft N/T Extremities: No Edema, No Calf Tenderness Neurology: alert, oriented, follow commands Assessment Assessment 1. Left thigh cellulitis: better with antibiotics 2. Accelerated HTN: labile 3. Systolic Murmur: No HOCM but murmur likely mild to moderate AV calcification. 4. Exertional dyspnea/SOA with abnormal EKG: troponin series normal and CP free. 5. Uncontrolled DM: due to noncompliance. Per PCP 6. Family hx of premature CAD: Sister [place] at 40s and First cousin [place] at his 20s. Recommendations 1. Continue with cardizem. Will add lisinopril. 2. Continue with ASA, lipitor 3. MPI today. 4. Significant discussion in regards to treatment compliance. RAGHU RIOJAS [employer] Dec 19, 2016 11:45
[2016-12-19] MEDS ORDERED: LISINOPRIL 20 MG TABLET PO SCH (12:00)
[2016-12-19] MEDS: CLINDAMYCIN HCL 150 MG CAPSULE. PO SCH ×2 (12:44→14:00)
[2016-12-19] MEDS: ASPIRIN ENTERIC COATED 81 MG TABLET.DR. PO SCH (12:45)
--- NOTE | 2016-12-19 13:09 | RAD ---
APPROVED REPORT Test Type: Exercise Stress Nurse/Tech: harris hilliard Test Indications: sycope, exertional dyspnea Cardiac History: NONE STATED, SEE EHR Medications: SEE EHR Medical History: DIABETES, SEE EHR Resting ECG: SR WITH T INVERSION ALL LEADS Resting Heart Rate: 108 bpm Resting Blood Pressure: 120/82mmHg Pretest Chest Pain: No chest pain Nurse/Tech Notes LUNG SOUNDS CLEAR, S1S2 WNL. Consent: The procedure was explained to the patient in lay terms. Informed consent was witnessed. lAy swain was entered into [employer]. History and Stress Test performed by VANDANA Sepulveda, CHRIS (R) (N) Stress Symptoms LEG FATIGUE, MINMAL SOA. HE COULD STILL TALK WHILE WALKING. POST EXERCISE Reason for Termination: Reached target heart rate Target HR: 147 Max HR: 149 bpm 101% of Maximum Predicted HR: 147 bpm Exercise duration: 5:44 min:sec, 2 Stage Exercise capacity: 7.0METs Max Blood Pressure: 133/83mmHg Blood Pressure response to exercise: Normal blood pressure response during stress. Heart Rate response to exercise: WNL Chest Pain: No. Arrhythmia: No. ST Change: No. INTERPRETATION Stress EKG Conclusion: Baseline EKG showed sinus rhythm with inferolateral ST depression and T wave i nversions. Non-diagnostic changes at peak stress. No arrhythmias. Imaging Protocol IMAGE PROTOCOL: Rest Tc-99m/stress Tc-99m 1 day Rest: Stress: Viability: Radiopharm.Tc99m KugzpblzlRa96r Sestamibi Earv61pOb 32mCi Img Date 12/19/2016 12/19/2016 Inj-Img [id number]. 60min. Rest Admin Site:IV - Left AntecubitalAdministrator:VANDANA Sepluveda ARRT (R)(N) Stress Admin Site: IV - Left AntecubitalAdministrator: VANDANA Sepulveda ARRT (R)(N) STRESS DATA End Diast. Vol.86.0mlAv. Heart Ahxr279.0bpm End Syst. Vol.26.0mlCO Index BSA0.0L/min Myocardial Shou992.0gEject. Yjiibrof57.0% Stress Rates Pk. Fill Rate4.97EDV/secLVtime Pk. Fill 163.19msec Pk. Empty Rate6.25ESV/secLVtime Pk. Eject97.04msec / Pk. Fill1.55EDV/sec Stress Scores Regional WT1.00Summed WT19.00 Regional WM0.00Summed WM7.00 Study quality was good. Left Ventricular size was Normal at Rest and Stress. Lung uptake was Normal. Left Ventricular ejection fraction is 70%. The rest and stress images show normal perfusion, normal contraction and thickening. LV Perf. Quant 17 Seg. SSS0.00 17 Seg. SRS0.00 17 Seg. SDS0.00 Stress Defect Extent (% LAD)0.00Rest Defect Extent (% LAD)0.00Rev. Defect Extent (% LAD)0.00 Stress Defect Extent (% LCX) 0.00Rest Defect Extent (% LCX)0.00Rev. Defect Extent (% LCX)0.00 Stress Defect Extent (% RCA)0.00Rest Defect Extent (% RCA)0.00Rev. Defect Extent (% RCA)0.00 Stress Defect Extent (% SHANNAN)0.00Rest Defect Extent (% SHANNAN)0.00Rev. Defect Extent (% SHANNAN)0.00 Conclusion 1. Treadmill exercise cardioisotope stress test did not show any evidence of ischemia or infarct. 2. Normal left ventricular systolic function with ejection fraction calculated at 70%. 3. Low risk for cardiac events.
[2016-12-19] MEDS ORDERED: ASPI-612 PO (14:12)
[2016-12-19] MEDS ORDERED: DILT120C80 PO (14:12)
[2016-12-19] MEDS ORDERED: GLYB5TAB3 PO (14:12)
[2016-12-19] MEDS ORDERED: CLIN150C14 PO (14:12)
[2016-12-19] MEDS ORDERED: LISI-334 PO (14:12)
[2016-12-19] MEDS ORDERED: ATOR20TA58 PO (14:12)
--- NOTE | 2016-12-19 14:15 | PDOC ---
PROGRESS NOTES Chief Complaint Chief Complaint Cellulitis, Diabetes 2, w./ hyperglycemia, accelerated hypertension, new murmur hyponatremia left ventricular hypertrophy. murmur, echo pending moderate malnutrition, POA History of Present Illness History of Present Illness BP better on cardizem, will start low dose lisinopril for renal protection in DM add sched aspart and levemir, now cont clinda for leg cellulitis, is much improved after IV dose last night in good spiritis today he has not been compliant with Dm treatment for months, with marked weight loss during that time, malnutrition due to hyperglycemia and poor Dm care discussed Vitals Vitals Vital Signs Date Time Temp Pulse Resp B/P (MAP) Pulse Ox O2 Delivery O2 Flow Rate FiO2 12/19/16 12:45 89 158/90 12/19/16 10:46 98.0 18 99 Room Air 98.0 Physical Exam General: Alert, Oriented X3, Cooperative, No acute distress Heart: Regular rate (SR), Normal S1, Normal S2, Other (5-6/6 systolic murmur to apex loudest with valsalva maneuver) Lungs: Clear Abdomen: Soft, No tenderness Extremities: No cyanosis, No edema Skin: No breakdown, No significant lesion Labs LABS Laboratory Tests Test 12/18/16 15:47 12/18/16 20:49 12/19/16 04:05 12/19/16 07:27 Glucose (Fingerstick) 270 mg/dL (70-99) 304 mg/dL (70-99) 282 mg/dL (70-99) White Blood Count 10.8 x10^3/uL (4.0-11.0) Red Blood Count 4.29 x10^6/uL (4.30-5.70) Hemoglobin 12.3 g/dL (13.0-17.5) Hematocrit 34.8 % (39.0-53.0) Mean Corpuscular Volume 81 fL (79-100) Mean Corpuscular Hemoglobin 29 pg (25-35) Mean Corpuscular Hemoglobin Concent 35 g/dL (31-37) Red Cell Distribution Width 13.3 % (11.5-14.5) Platelet Count 526 x10^3/uL (140-400) Neutrophils (%) (Auto) 67 % (31-73) Lymphocytes (%) (Auto) 23 % (24-48) Monocytes (%) (Auto) 7 % (0-9) Eosinophils (%) (Auto) 3 % (0-3) Basophils (%) (Auto) 0 % (0-3) Neutrophils # (Auto) 7.2 x10^3uL (1.8-7.7) Lymphocytes # (Auto) 2.5 x10^3/uL (1.0-4.8) Monocytes # (Auto) 0.8 x10^3/uL (0.0-1.1) Eosinophils # (Auto) 0.4 x10^3/uL (0.0-0.7) Basophils # (Auto) 0.0 x10^3/uL (0.0-0.2) Sodium Level 134 mmol/L (136-145) Potassium Level 3.4 mmol/L (3.5-5.1) Chloride Level 98 mmol/L (98-107) Carbon Dioxide Level 29 mmol/L (21-32) Anion Gap 7 (6-14) Blood Urea Nitrogen 11 mg/dL (8-26) Creatinine 0.5 mg/dL (0.7-1.3) Estimated GFR (Cockcroft-Gault) 178.2 BUN/Creatinine Ratio 22 (6-20) Glucose Level 329 mg/dL (70-99) Calcium Level 8.7 mg/dL (8.5-10.1) Total Bilirubin 0.3 mg/dL (0.2-1.0) Aspartate Amino Transf (AST/SGOT) 10 U/L (15-37) Alanine Aminotransferase (ALT/SGPT) 11 U/L (16-63) Alkaline Phosphatase 124 U/L (46-116) Total Protein 7.1 g/dL (6.4-8.2) Albumin 2.3 g/dL (3.4-5.0) Albumin/Globulin Ratio 0.5 (1.0-1.7) Test 12/19/16 10:39 Glucose (Fingerstick) 286 mg/dL (70-99) Assessment and Plan Assessmemt and Plan try to DC today with MPI stress test pending Problems Medical Problems: (1) Cellulitis of left thigh Status: Acute (2) Heart murmur Status: Acute (3) Heart murmur, systolic Status: Acute (4) Uncontrolled diabetes mellitus Status: Acute (5) Uncontrolled hypertension Status: Acute Problems: Comment Review of Relevant I have reviewed the following items aditya (where applicable) has been applied. Labs Laboratory Tests Test 12/17/16 17:37 12/17/16 18:15 12/17/16 18:20 12/17/16 21:35 Glucose (Fingerstick) 442 mg/dL (70-99) 316 mg/dL (70-99) White Blood Count 10.6 x10^3/uL (4.0-11.0) Red Blood Count 4.65 x10^6/uL (4.30-5.70) Hemoglobin 13.2 g/dL (13.0-17.5) Hematocrit 38.5 % (39.0-53.0) Mean Corpuscular Volume 83 fL (79-100) Mean Corpuscular Hemoglobin 28 pg (25-35) Mean Corpuscular Hemoglobin Concent 34 g/dL (31-37) Red Cell Distribution Width 13.0 % (11.5-14.5) Platelet Count 601 x10^3/uL (140-400) Neutrophils (%) (Auto) 71 % (31-73) Lymphocytes (%) (Auto) 20 % (24-48) Monocytes (%) (Auto) 7 % (0-9) Eosinophils (%) (Auto) 1 % (0-3) Basophils (%) (Auto) 1 % (0-3) Neutrophils # (Auto) 7.5 x10^3uL (1.8-7.7) Lymphocytes # (Auto) 2.1 x10^3/uL (1.0-4.8) Monocytes # (Auto) 0.7 x10^3/uL (0.0-1.1) Eosinophils # (Auto) 0.1 x10^3/uL (0.0-0.7) Basophils # (Auto) 0.1 x10^3/uL (0.0-0.2) Sodium Level 134 mmol/L (136-145) Potassium Level 3.6 mmol/L (3.5-5.1) Chloride Level 94 mmol/L (98-107) Carbon Dioxide Level 31 mmol/L (21-32) Anion Gap 9 (6-14) Blood Urea Nitrogen 11 mg/dL (8-26) Creatinine 0.8 mg/dL (0.7-1.3) Estimated GFR (Cockcroft-Gault) 103.6 BUN/Creatinine Ratio 14 (6-20) Glucose Level 411 mg/dL (70-99) Lactic Acid Level 1.1 mmol/L (0.4-2.0) Calcium Level 9.4 mg/dL (8.5-10.1) Total Bilirubin 0.3 mg/dL (0.2-1.0) Aspartate Amino Transf (AST/SGOT) 10 U/L (15-37) Alanine Aminotransferase (ALT/SGPT) 15 U/L (16-63) Alkaline Phosphatase 160 U/L (46-116) Troponin I Quantitative < 0.017 ng/mL (0.000-0.055) Total Protein 8.4 g/dL (6.4-8.2) Albumin 2.9 g/dL (3.4-5.0) Albumin/Globulin Ratio 0.5 (1.0-1.7) Urine Collection Type Unknown Urine Color Yellow Urine Clarity Clear Urine pH 6.5 Urine Specific [place] >=1.030 Urine Protein Negative mg/dL (NEG-TRACE) Urine Glucose (UA) >=1000 mg/dL (NEG) Urine Ketones (Stick) Trace mg/dL (NEG) Urine Blood Moderate (NEG) Urine Nitrite Negative (NEG) Urine Bilirubin Negative (NEG) Urine Urobilinogen Dipstick 0.2 mg/dL (0.2 mg/dL) Urine Leukocyte Esterase Negative (NEG) Urine RBC 20-40 /HPF (0-2) Urine WBC 0 /HPF (0-4) Urine Bacteria 0 /HPF (0-FEW) Test 12/18/16 07:52 12/18/16 10:51 12/18/16 11:20 12/18/16 15:47 Glucose (Fingerstick) 284 mg/dL (70-99) 316 mg/dL (70-99) 270 mg/dL (70-99) Sodium Level 135 mmol/L (136-145) Potassium Level 4.4 mmol/L (3.5-5.1) Chloride Level 96 mmol/L (98-107) Carbon Dioxide Level 31 mmol/L (21-32) Anion Gap 8 (6-14) Blood Urea Nitrogen 12 mg/dL (8-26) Creatinine 0.5 mg/dL (0.7-1.3) Estimated GFR (Cockcroft-Gault) 178.2 Glucose Level 320 mg/dL (70-99) Calcium Level 9.2 mg/dL (8.5-10.1) Magnesium Level 2.0 mg/dL (1.8-2.4) Troponin I Quantitative < 0.017 ng/mL (0.000-0.055) Triglycerides Level 158 mg/dL (0-150) Cholesterol Level 177 mg/dL (0-200) LDL Cholesterol, Calculated 111 mg/dL (0-100) VLDL Cholesterol, Calculated 32 mg/dL (0-40) Non-HDL Cholesterol Calculated 143 mg/dL (0-129) HDL Cholesterol 34 mg/dL (40-60) Cholesterol/HDL Ratio 5.2 Thyroid Stimulating Hormone (TSH) 1.105 uIU/mL (0.358-3.74) Test 12/18/16 20:49 12/19/16 04:05 12/19/16 07:27 12/19/16 10:39 Glucose (Fingerstick) 304 mg/dL (70-99) 282 mg/dL (70-99) 286 mg/dL (70-99) White Blood Count 10.8 x10^3/uL (4.0-11.0) Red Blood Count 4.29 x10^6/uL (4.30-5.70) Hemoglobin 12.3 g/dL (13.0-17.5) Hematocrit 34.8 % (39.0-53.0) Mean Corpuscular Volume 81 fL (79-100) Mean Corpuscular Hemoglobin 29 pg (25-35) Mean Corpuscular Hemoglobin Concent 35 g/dL (31-37) Red Cell Distribution Width 13.3 % (11.5-14.5) Platelet Count 526 x10^3/uL (140-400) Neutrophils (%) (Auto) 67 % (31-73) Lymphocytes (%) (Auto) 23 % (24-48) Monocytes (%) (Auto) 7 % (0-9) Eosinophils (%) (Auto) 3 % (0-3) Basophils (%) (Auto) 0 % (0-3) Neutrophils # (Auto) 7.2 x10^3uL (1.8-7.7) Lymphocytes # (Auto) 2.5 x10^3/uL (1.0-4.8) Monocytes # (Auto) 0.8 x10^3/uL (0.0-1.1) Eosinophils # (Auto) 0.4 x10^3/uL (0.0-0.7) Basophils # (Auto) 0.0 x10^3/uL (0.0-0.2) Sodium Level 134 mmol/L (136-145) Potassium Level 3.4 mmol/L (3.5-5.1) Chloride Level 98 mmol/L (98-107) Carbon Dioxide Level 29 mmol/L (21-32) Anion Gap 7 (6-14) Blood Urea Nitrogen 11 mg/dL (8-26) Creatinine 0.5 mg/dL (0.7-1.3) Estimated GFR (Cockcroft-Gault) 178.2 BUN/Creatinine Ratio 22 (6-20) Glucose Level 329 mg/dL (70-99) Calcium Level 8.7 mg/dL (8.5-10.1) Total Bilirubin 0.3 mg/dL (0.2-1.0) Aspartate Amino Transf (AST/SGOT) 10 U/L (15-37) Alanine Aminotransferase (ALT/SGPT) 11 U/L (16-63) Alkaline Phosphatase 124 U/L (46-116) Total Protein 7.1 g/dL (6.4-8.2) Albumin 2.3 g/dL (3.4-5.0) Albumin/Globulin Ratio 0.5 (1.0-1.7) Laboratory Tests Test 12/18/16 15:47 12/18/16 20:49 12/19/16 04:05 12/19/16 07:27 Glucose (Fingerstick) 270 mg/dL (70-99) 304 mg/dL (70-99) 282 mg/dL (70-99) White Blood Count 10.8 x10^3/uL (4.0-11.0) Red Blood Count 4.29 x10^6/uL (4.30-5.70) Hemoglobin 12.3 g/dL (13.0-17.5) Hematocrit 34.8 % (39.0-53.0) Mean Corpuscular Volume 81 fL (79-100) Mean Corpuscular Hemoglobin 29 pg (25-35) Mean Corpuscular Hemoglobin Concent 35 g/dL (31-37) Red Cell Distribution Width 13.3 % (11.5-14.5) Platelet Count 526 x10^3/uL (140-400) Neutrophils (%) (Auto) 67 % (31-73) Lymphocytes (%) (Auto) 23 % (24-48) Monocytes (%) (Auto) 7 % (0-9) Eosinophils (%) (Auto) 3 % (0-3) Basophils (%) (Auto) 0 % (0-3) Neutrophils # (Auto) 7.2 x10^3uL (1.8-7.7) Lymphocytes # (Auto) 2.5 x10^3/uL (1.0-4.8) Monocytes # (Auto) 0.8 x10^3/uL (0.0-1.1) Eosinophils # (Auto) 0.4 x10^3/uL (0.0-0.7) Basophils # (Auto) 0.0 x10^3/uL (0.0-0.2) Sodium Level 134 mmol/L (136-145) Potassium Level 3.4 mmol/L (3.5-5.1) Chloride Level 98 mmol/L (98-107) Carbon Dioxide Level 29 mmol/L (21-32) Anion Gap 7 (6-14) Blood Urea Nitrogen 11 mg/dL (8-26) Creatinine 0.5 mg/dL (0.7-1.3) Estimated GFR (Cockcroft-Gault) 178.2 BUN/Creatinine Ratio 22 (6-20) Glucose Level 329 mg/dL (70-99) Calcium Level 8.7 mg/dL (8.5-10.1) Total Bilirubin 0.3 mg/dL (0.2-1.0) Aspartate Amino Transf (AST/SGOT) 10 U/L (15-37) Alanine Aminotransferase (ALT/SGPT) 11 U/L (16-63) Alkaline Phosphatase 124 U/L (46-116) Total Protein 7.1 g/dL (6.4-8.2) Albumin 2.3 g/dL (3.4-5.0) Albumin/Globulin Ratio 0.5 (1.0-1.7) Test 12/19/16 10:39 Glucose (Fingerstick) 286 mg/dL (70-99) Microbiology 12/17/16 Blood Culture - Preliminary, Resulted NO GROWTH AFTER 1 DAY Medications Current Medications Sodium Chloride 1,000 ml @ 1,000 mls/hr 1X ONCE IV Last administered on 18:28; Start 12/17/16 at 18:00; Stop 12/17/16 at 18:59; Status DC Ondansetron HCl (Zofran) 4 mg PRN Q8HRS PRN IV NAUSEA/VOMITING Last administered on 12/17/16 18:29; Start 12/17/16 at 18:15; Stop 12/18/16 at 18:14 ; Status DC Morphine Sulfate 4 mg PRN Q2HR PRN IV PAIN Last administered on 12/17/16 18:30 ; Start 12/17/16 at 18:15; Stop 12/18/16 at 18:14; Status DC Clindamycin Phosphate 50 ml @ 100 mls/hr 1X ONCE IV Last administered on 12/17 18:48; Start 12/17/16 at 18:45; Stop 12/17/16 at 19:14; Status DC Acetaminophen (Tylenol) 650 mg PRN Q6HRS PRN PO MILD PAIN / TEMP Last administered on 12/18/16 00:17; Start 12/17/16 at 23:30 Insulin Aspart (NovoLOG) 0-5 UNITS TIDACHC SQ Last administered on 12/19/16 12 :52; Start 12/17/16 at 23:30 Insulin Aspart (NovoLOG) 0-7 UNITS TIDWMEALS SQ ; Start 12/18/16 at 08:00; Status UNV Dextrose (Dextrose 50%-Water Syringe) 12.5 gm PRN Q15MIN PRN IV SEE COMMENTS; Start 12/17/16 at 23:30 Sodium Chloride 1,000 ml @ 75 mls/hr [id number] IV Last administered on 02:03; Start 12/17/16 at 23:30 Diltiazem HCl (Cardizem 24hr Cd) 120 mg DAILY PO Last administered on 12:45; Start 12/18/16 at 01:00 Pneumococcal Polyvalent Vaccine (Pneumovax 23) 0.5 ml ONCE ONCE VAX IM Last administered on 12/18/16 15:12; Start 12/18/16 at 09:00; Stop 12/18/16 at 09:01 ; Status DC Clindamycin HCl (Cleocin) 900 mg TID PO Last administered on 12/19/16 12:44; Start 12/18/16 at 10:30 Insulin Aspart (NovoLOG) 5 units TIDAC SQ Last administered on 12/18/16 17:50 ; Start 12/18/16 at 11:30; Stop 12/19/16 at 09:28; Status DC Insulin Detemir (Levemir) 8 units DAILY10 SQ Last administered on 12/18/16 11: 06; Start 12/18/16 at 10:30; Stop 12/19/16 at 09:28; Status DC Atorvastatin Calcium (Lipitor) 20 mg QHS PO Last administered on 12/18/16 19: 53; Start 12/18/16 at 21:00 Aspirin (Ecotrin) 81 mg [id number] PO Last administered on 12/19/16 12:45; Start 12/18/16 at 14:00 Potassium Chloride (Klor-Con) 40 meq 1X ONCE PO Last administered on 12:44; Start 12/19/16 at 09:30; Stop 12/19/16 at 09:31; Status DC Insulin Aspart (NovoLOG) 8 units TIDAC SQ Last administered on 12/19/16 12:53 ; Start 12/19/16 at 11:30 Insulin Detemir (Levemir) 12 units DAILY10 SQ Last administered on 12/19/16 12 :54; Start 12/19/16 at 10:00 Lisinopril (Prinivil) 20 mg DAILY PO Last administered on 12/19/16 12:45; Start 12/19/16 at 12:00 Active Scripts Active Reported [pill for diabetes ?] Vitals/I & O Vital Sign - Last 24 Hours 12/18/16 12/18/16 12/18/16 12/18/16 14:32 19:51 20:00 23:26 Temp 97.7 98.2 98.1 97.7 98.2 98.1 Pulse 98 104 97 Resp 20 20 B/P (MAP) 128/87 (101) 128/79 (95) 153/98 (116) Pulse Ox 96 99 99 O2 Delivery Room Air Room Air Room Air Room Air 12/19/16 12/19/16 12/19/16 12/19/16 07:00 10:46 12:45 12:45 Temp 98.0 98.0 98.0 98.0 Pulse 92 89 89 89 Resp 18 18 B/P (MAP) 155/94 (114) 158/90 (112) 158/90 158/90 Pulse Ox 99 99 O2 Delivery Room Air Room Air Intake and Output 12/19/16 12/19/16 12/20/16 15:00 23:00 07:00 Intake Total 300 ml Balance 300 ml TERRENCE GALLAGHER MD Dec 19, 2016 14:15
[2016-12-19 14:52] VITALS: BP 140/90
--- NOTE | 2016-12-19 15:59 | EKG ---
[facility] [address] [place] [address] Test Date: 2016-12-17 Test Time: 17:36:08 Pat Name: TANNA VINES Department: Room: [facility] Gender: M Digital Service Engineer: : [id number] Requested By: SANDRA GARCIA Order Number: [id number] Reading MD: Measurements [address] Rate: 106 P: 47 TN: 112 QRS: 15 QRSD: 80 T: 164 QT: 340 QTc: 453 Interpretive Statements SINUS TACHYCARDIA LEFT ATRIAL ABNORMALITY ST & T ABNORMALITY, CONSIDER ANTEROLATERAL ISCHEMIA OR LEFT VENTRICULAR STRAIN T ABNORMALITY IN INFEROLATERAL LEADS RI6.01 Unconfirmed report No previous ECG available for comparison
[2016-12-19] MEDS ORDERED: glyBURIDE 5 MG TABLET PO SCH (17:00)
== END 2016-12-19 16:00 | disposition home or self-care (01) | DRG 603 ==
LOC: ER 17:18 → 5 SOUTH 18:02
PROVIDERS: ADMIT Internal Medicine; ATTEND Internal Medicine
DX: L03.116 Cellulitis of left lower limb (principal); E44.0 Moderate protein-calorie malnutrition; E11.65 Type 2 diabetes mellitus with hyperglycemia; I11.9 Hypertensive heart disease without heart failure; E87.1 Hypo-osmolality and hyponatremia; Z68.1 Body mass index [BMI] 19.9 or less, adult; R01.1 Cardiac murmur, unspecified; R94.31 Abnormal electrocardiogram [ECG] [EKG]; Z82.49 Family history of ischemic heart disease and other diseases of the circulatory system; Z91.19 Patient's noncompliance with other medical treatment and regimen; Z79.4 Long term (current) use of insulin
CPT/HCPCS: 36415; 71010; 78452; 80048; 80053; 80061; 81001; 82962; 83036; 83605; 83735; 84443; 84484; 85025; 87040; 90732; 93005; 93017; 93306; 93971; 96361; 96374; 96375; 96376; A9500; J1815; J2270; J2405; J3490; J7030; 99285-25